=== PATIENT | male | born 1965 | race Caucasian/White ===

== ENCOUNTER 2024-05-07 20:23 | Emergency (ER) | payer SELFPAY ==
[~2024-05-07] VITALS: Ht 190.5 cm; Wt 99.8 kg
[2024-05-07 20:57] LABS: BASOPHILS ABSOLUTE AUTO 0.02 K/mm3 (0.00-0.23); BASOPHILS PERCENT AUTO 0 % (0-2); EOSINOPHILS ABSOLUTE AUTO 0.14 K/mm3 (0.00-0.68); EOSINOPHILS PERCENT AUTO 2 % (0-6); Hematocrit 42.4 % (37.0-53.0); Hemoglobin 13.3 g/dL (13.5-17.5); IMMATURE GRAN ABSOLUTE AUTO 0.02 K/mm3 (0.00-0.10); IMMATURE GRAN PERCENT AUTO 0 % (0-1); LYMPHOCYTES ABSOLUTE AUTO 1.11 K/mm3 (0.84-5.20); LYMPHOCYTES PERCENT AUTO 16 % (21-46); MONOCYTES ABSOLUTE AUTO 0.67 K/mm3 (0.16-1.47); MONOCYTES PERCENT AUTO 10 % (4-13); Mean Corpuscular HGB 24.9 pg (26.0-34.0); Mean Corpuscular HGB Conc 31.4 g/dL (31.5-36.5); Mean Corpuscular Volume 79 fL (80-100); Mean Platelet Volume 9.4 fL (9.1-12.4); NEUTROPHILS ABSOLUTE AUTO 4.97 K/mm3 (1.96-9.15); NEUTROPHILS PERCENT AUTO 72 % (41-73); Platelet Count 294 K/mm3 (150-400); RDW Coefficient Variation 16.3 % (11.7-14.2); RDW Standard Deviation 46.5 fL (35.1-46.3); Red Blood Cell Count 5.35 M/mm3 (4.30-5.90); White Blood Cell Count 6.93 K/mm3 (4.00-11.30)
[2024-05-07 21:15] LABS: Influenza A, PCR NEGATIVE (NEGATIVE); Influenza B, PCR NEGATIVE (NEGATIVE); Resp Syncytial Virus, PCR NEGATIVE (NEGATIVE); SARS-Cov-2 (COVID-19) PCR, MMC NEGATIVE (NEGATIVE)
[2024-05-07 21:21] LABS: Albumin, Blood 4.2 g/dL (3.4-5.0); Albumin/Globulin Ratio 1.4 (0.8-1.8); Bilirubin, Total 0.3 mg/dL (0.1-1.0); Bun/Creatinine Ratio 11.7 (12.0-20.0); Calcium, Blood 8.9 mg/dL (8.5-10.1); Creatinine, Blood 1.2 mg/dL (0.60-1.20); Globulin, Blood 2.9 g/dL (2.2-4.0); Potassium, Blood 4.2 mmol/L (3.5-5.5); Total Protein, Blood 7.1 g/dL (6.4-8.2)
== END 2024-05-07 22:13 | disposition left against medical advice (07) ==
LOC: ER 20:23
PROVIDERS: Student in an Organized Health Care Education/Training Program
DX: F41.9 Anxiety disorder, unspecified (principal); R07.9 Chest pain, unspecified; Z53.29 Procedure and treatment not carried out because of patient's decision for other reasons
CPT/HCPCS: 0241U; 71046; 80053; 84484; 85025

== ENCOUNTER 2024-06-11 23:07 | Inpatient (IN) | payer SELFPAY ==
[~2024-06-11] VITALS: Ht 190.5 cm; Wt 95.1 kg
[2024-06-11] MEDS ORDERED: Morphine Sulfate 4 MG/1 ML Injection IV ONE (23:25)
[2024-06-11 23:29] LABS: BASOPHILS ABSOLUTE AUTO 0.03 K/mm3 (0.00-0.23); BASOPHILS PERCENT AUTO 0 % (0-2); EOSINOPHILS ABSOLUTE AUTO 0.18 K/mm3 (0.00-0.68); EOSINOPHILS PERCENT AUTO 2 % (0-6); Hematocrit 39.1 % (37.0-53.0); Hemoglobin 12.3 g/dL (13.5-17.5); IMMATURE GRAN ABSOLUTE AUTO 0.03 K/mm3 (0.00-0.10); IMMATURE GRAN PERCENT AUTO 0 % (0-1); LYMPHOCYTES ABSOLUTE AUTO 1.88 K/mm3 (0.84-5.20); LYMPHOCYTES PERCENT AUTO 24 % (21-46); MONOCYTES PERCENT AUTO 10 % (4-13); Mean Corpuscular HGB 24.6 pg (26.0-34.0); Mean Corpuscular HGB Conc 31.5 g/dL (31.5-36.5); Mean Corpuscular Volume 78 fL (80-100); Mean Platelet Volume 9.3 fL (9.1-12.4); NEUTROPHILS ABSOLUTE AUTO 4.84 K/mm3 (1.96-9.15); NEUTROPHILS PERCENT AUTO 62 % (41-73); Platelet Count 274 K/mm3 (150-400); RDW Coefficient Variation 17.4 % (11.7-14.2); RDW Standard Deviation 49.1 fL (35.1-46.3); White Blood Cell Count 7.76 K/mm3 (4.00-11.30)
[2024-06-11] MEDS ORDERED: Ondansetron HCl 2 MG / ML 2ML Vial IV ONE (23:30)
[2024-06-11] MEDS ORDERED: ASPI81CH PO (23:38)
[2024-06-11] MEDS ORDERED: NITR.4SL SL (23:38)
[2024-06-11] MEDS ORDERED: CLOP75 PO (23:39)
[2024-06-11] MEDS ORDERED: GABA100 PO (23:39)
[2024-06-11 23:41] LABS: Albumin, Blood 3.5 g/dL (3.4-5.0); Albumin/Globulin Ratio 1.2 (0.8-1.8); Bilirubin, Total 0.3 mg/dL (0.1-1.0); Bun/Creatinine Ratio 18.7 (12.0-20.0); Calcium, Blood 8.6 mg/dL (8.5-10.1); Creatinine, Blood 1.07 mg/dL (0.60-1.20); Potassium, Blood 4.1 mmol/L (3.5-5.5); Total Protein, Blood 6.5 g/dL (6.4-8.2)
[2024-06-11 23:47] LABS: D-Dimer, Quantitative 1.21 mg/L FEU (0.00-0.52)
[2024-06-12] MEDS ORDERED: Nitroglycerin/D5W 250 ML IV PRN (00:30)
[2024-06-12] MEDS ORDERED: HYDROmorphone HCl/Pf 1MG SYR IV ONE (01:45)
[2024-06-12 03:10] LABS: Anti-Xa UFH, PHA Monitoring <0.10 IU/mL; International Normalized Ratio 1.05; Prothrombin Time Results 11.2 Sec (9.7-11.5)
[2024-06-12] MEDS ORDERED: Heparin Sodium,Porcine/0.5 NS 500 ML IV SCH (03:30)
[2024-06-12] MEDS ORDERED: Heparin Sodium 5000 Units/ML 1ML MDV IV ONE (03:30)
[2024-06-12] MEDS ORDERED: HYDROmorphone HCl/Pf 1MG SYR IV PRN (04:35)
[2024-06-12] MEDS ORDERED: Ondansetron HCl 2 MG / ML 2ML Vial IV PRN (06:35)
[2024-06-12] MEDS ORDERED: ONDA4 PO (06:38)
[2024-06-12] MEDS ORDERED: Aspirin 81 MG Chew PO SCH (09:00)
[2024-06-12] MEDS ORDERED: Clopidogrel Bisulfate 75 MG Tab PO SCH (09:00)
[2024-06-12] MEDS ORDERED: TraZODone HCl 50 MG Tab PO PRN (10:00)
[2024-06-12] MEDS ORDERED: Zolpidem Tartrate 10 MG Tab PO PRN (10:00)
[2024-06-12] MEDS ORDERED: HYDROcodone 10-APAP 325 TAB PO PRN (10:05)
[2024-06-12] MEDS ORDERED: Rivaroxaban 2.5 MG TABLET PO SCH (10:32)
[2024-06-12] MEDS ORDERED: Rivaroxaban 10 MG Tab PO SCH ×2 (10:35→21:00)
[2024-06-12] MEDS ORDERED: Insulin Regular 100 UNIT/ML 10ML Vial SC SCH (11:30)
[2024-06-12] MEDS ORDERED: Gabapentin 400 MG Cap PO SCH (14:00)
[2024-06-12] MEDS ORDERED: Doxycycline Hyclate 100 MG TAB PO SCH (15:00)
[2024-06-12] MEDS ORDERED: Clindamycin HCl 150 MG Cap PO SCH (15:00)
[2024-06-12] MEDS ORDERED: LORazepam 1 MG Tab PO PRN (15:45)
[2024-06-12] MEDS ORDERED: Isosorbide Mononitrate 30 MG TABCR PO SCH (18:00)
[2024-06-12] MEDS ORDERED: Doxycycline Mo100 M1 PO (18:37)
[2024-06-12] MEDS ORDERED: CLIN300 PO (18:38)
[2024-06-12 20:49] VITALS: BP 110/68
[2024-06-13 02:57] VITALS: BP 97/57
[2024-06-13 07:11] VITALS: BP 119/78
[2024-06-13] MEDS ORDERED: DULoxetine HCL 60 MG Capsule DR PO SCH (09:00)
[2024-06-13] MEDS ORDERED: DULO60 PO (10:44)
[2024-06-13] MEDS ORDERED: Norco 10-325 T1 EACH PO (10:45)
[2024-06-13] MEDS ORDERED: Ativan1 MG PO (10:46)
[2024-06-13] MEDS ORDERED: XARELTO20 MG PO (10:46)
[2024-06-13] MEDS ORDERED: ZOLP10 PO (10:48)
[2024-06-13] MEDS ORDERED: TRAZ150T57 PO (10:48)
[2024-06-13] MEDS ORDERED: XARELTO20 M1 PO (10:49)
[2024-06-13] MEDS ORDERED: GLUCOPHAGE1000 M1 PO (10:49)
--- NOTE | 2024-06-13 11:40 | NUR ---
DISCHARGE PATIENT TRANSPORTED VIA WHEELCHAIR TO PRIVATE VEHICLE. DISCHARGE INSTRUCTIONS EXPLAINED TO PATIENT. PATIENT STATED UNDERSTANDING. PACKET SENT WITH PATIENT. BELONGINGS SENT WITH PATIENT. IV REMOVED WITHOUT DIFFICULTY. FARMER CATH INTAKE AND DRAINING TO GRAVITY AT DISCHARGE. MEDICATIONS FAXED TO [facility] PER PATIENT REQUEST. PATIENT EDUCATED ON NEED TO [place] LOCAL PCP. PATIENT INSTRUCTED TO KEEP APPT THIS THURSDAY WITH PCP IN [place].
== END 2024-06-13 11:47 | disposition home or self-care (01) | DRG 176 ==
LOC: ER 23:07 → ERHOLD 23:08 → MEDS 06-12 16:04 → ERHOLD 06-12 16:04 → MEDS 06-12 20:46
PROVIDERS: Student in an Organized Health Care Education/Training Program; ADMIT Family Medicine
DX: I26.99 Other pulmonary embolism without acute cor pulmonale (principal); T87.40 Infection of amputation stump, unspecified extremity; I25.10 Atherosclerotic heart disease of native coronary artery without angina pectoris; Z66 Do not resuscitate; G62.9 Polyneuropathy, unspecified; G89.4 Chronic pain syndrome; F17.210 Nicotine dependence, cigarettes, uncomplicated; Y83.8 Other surgical procedures as the cause of abnormal reaction of the patient, or of later complication, without mention of misadventure at the time of the procedure; Z95.5 Presence of coronary angioplasty implant and graft; Z86.718 Personal history of other venous thrombosis and embolism; Z88.1 Allergy status to other antibiotic agents; I25.2 Old myocardial infarction; Z95.1 Presence of aortocoronary bypass graft; Z79.82 Long term (current) use of aspirin; Z79.899 Other long term (current) drug therapy
CPT/HCPCS: 71046; 71260; 80053; 82947; 83880; 84484; 85025; 85379; 85520; 85610; 93005; 93010; 96365-59; 96366; 96367-59; 96375; 96375-59; 96376-59; 99285-25; A9270; G0378; J1170; J1644; J2270; J2405; Q9967

== ENCOUNTER 2024-11-11 11:38 | Emergency (ER) | payer SELFPAY ==
[~2024-11-11] VITALS: Ht 190.5 cm; Wt 95.2 kg
[~2024-11-11 11:38] MED LIST: ASPI81CH PO; Ativan1 MG PO; CLIN300 PO; CLOP75 PO; DULO60 PO; Doxycycline Mo100 M1 PO; GABA100 PO; GLUCOPHAGE1000 M1 PO; NITR.4SL SL; Norco 10-325 T1 EACH PO; ONDA4 PO; TRAZ150T57 PO; XARELTO20 M1 PO; XARELTO20 MG PO; ZOLP10 PO
[2024-11-11 12:47] LABS: BASOPHILS ABSOLUTE AUTO 0.03 K/mm3 (0.00-0.23); BASOPHILS PERCENT AUTO 0 % (0-2); EOSINOPHILS ABSOLUTE AUTO 0.04 K/mm3 (0.00-0.68); EOSINOPHILS PERCENT AUTO 0 % (0-6); Hematocrit 44.3 % (37.0-53.0); Hemoglobin 14.7 g/dL (13.5-17.5); IMMATURE GRAN ABSOLUTE AUTO 0.04 K/mm3 (0.00-0.10); IMMATURE GRAN PERCENT AUTO 0 % (0-1); LYMPHOCYTES ABSOLUTE AUTO 1.21 K/mm3 (0.84-5.20); LYMPHOCYTES PERCENT AUTO 12 % (21-46); MONOCYTES ABSOLUTE AUTO 1.13 K/mm3 (0.16-1.47); MONOCYTES PERCENT AUTO 11 % (4-13); Mean Corpuscular HGB 27.9 pg (26.0-34.0); Mean Corpuscular HGB Conc 33.2 g/dL (31.5-36.5); Mean Corpuscular Volume 84 fL (80-100); Mean Platelet Volume 9.8 fL (9.1-12.4); NEUTROPHILS PERCENT AUTO 75 % (41-73); Platelet Count 174 K/mm3 (150-400); RDW Standard Deviation 45.9 fL (35.1-46.3); Red Blood Cell Count 5.27 M/mm3 (4.30-5.90); White Blood Cell Count 9.95 K/mm3 (4.00-11.30)
[2024-11-11 13:35] LABS: Albumin, Blood 3.6 g/dL (3.4-5.0); Bilirubin, Total 0.7 mg/dL (0.1-1.0); Bun/Creatinine Ratio 14.8 (12.0-20.0); Calcium, Blood 9.3 mg/dL (8.5-10.1); Creatinine, Blood 1.08 mg/dL (0.60-1.20); Globulin, Blood 3.7 g/dL (2.2-4.0); Potassium, Blood 3.9 mmol/L (3.5-5.5); Total Protein, Blood 7.3 g/dL (6.4-8.2)
[2024-11-11] MEDS ORDERED: OxyCODONE 10/Acetamin 325 TABLET PO ONE (16:25)
[2024-11-11 16:35] LABS: Source, Urine Suprapubic Cath
[2024-11-11 16:40] LABS: Appearance, Urine Hazy (Clear); Bilirubin, Urine Neg (Neg); Blood, Urine 3+ (Neg); Color, Urine Yellow (P-Yellow); Glucose Qualitative, Urine Neg (Neg); Ketones, Urine Neg (Neg); Leukocyte Esterase, Urine 3+ (Neg); Nitrite, Urine Neg (Neg); Protein, Urine 2+ (Neg); Urobilinogen, Urine 1+ (Normal); pH, Urine 6.5 (5.0-8.0)
[2024-11-11 17:00] LABS: White Blood Cells, Urine TNTC /hpf (0-5)
[2024-11-11 17:01] LABS: Bacteria Many /hpf; Squamous Epithelial Cells Not Seen /hpf (Few)
[2024-11-16] MEDS ORDERED: Veetids 500500 MG PO (08:57)
== END 2024-11-11 16:44 | disposition home or self-care (01) ==
LOC: ER 11:38
PROVIDERS: Student in an Organized Health Care Education/Training Program
DX: T83.010A Breakdown (mechanical) of cystostomy catheter, initial encounter (principal); L89.899 Pressure ulcer of other site, unspecified stage; E11.9 Type 2 diabetes mellitus without complications; G47.00 Insomnia, unspecified; Z79.899 Other long term (current) drug therapy; Z79.84 Long term (current) use of oral hypoglycemic drugs; Z88.1 Allergy status to other antibiotic agents; Z88.5 Allergy status to narcotic agent
CPT/HCPCS: 51705; 51798; 80053; 81001; 85025; 87077; 87086; 87186; 99283-25; A9270; C2627

== ENCOUNTER 2024-12-14 16:44 | Emergency (ER) | payer SELFPAY ==
[~2024-12-14] VITALS: Ht 190.5 cm; Wt 98.9 kg
[~2024-12-14 16:44] MED LIST changes: +Veetids 500500 MG PO
[2024-12-14 17:55] LABS: Source, Urine Suprapubic Cath
[2024-12-14 18:06] LABS: Albumin, Blood 3.3 g/dL (3.4-5.0); Albumin/Globulin Ratio 1.1 (0.8-1.8); Bilirubin, Total 0.7 mg/dL (0.1-1.0); Bun/Creatinine Ratio 14.6 (12.0-20.0); Calcium, Blood 8.7 mg/dL (8.5-10.1); Creatinine, Blood 1.3 mg/dL (0.60-1.20); Globulin, Blood 3.1 g/dL (2.2-4.0); Potassium, Blood 4.8 mmol/L (3.5-5.5); Total Protein, Blood 6.4 g/dL (6.4-8.2)
[2024-12-14 18:13] LABS: Appearance, Urine Cloudy (Clear); Bilirubin, Urine Neg (Neg); Blood, Urine 3+ (Neg); Color, Urine Yellow (P-Yellow); Glucose Qualitative, Urine Neg (Neg); Ketones, Urine Neg (Neg); Leukocyte Esterase, Urine 3+ (Neg); Nitrite, Urine Pos (Neg); Protein, Urine 2+ (Neg); Specific Gravity, Urine 1.015 (1.003-1.022); Urobilinogen, Urine NORM (Normal)
[2024-12-14 18:25] LABS: Bacteria Many /hpf; Squamous Epithelial Cells Rare /hpf (Few); White Blood Cells, Urine TNTC /hpf (0-5)
[2024-12-14 19:01] LABS: BASOPHILS ABSOLUTE AUTO 0.03 K/mm3 (0.00-0.23); BASOPHILS PERCENT AUTO 0 % (0-2); EOSINOPHILS ABSOLUTE AUTO 0.18 K/mm3 (0.00-0.68); EOSINOPHILS PERCENT AUTO 2 % (0-6); Hematocrit 44.3 % (37.0-53.0); Hemoglobin 14.2 g/dL (13.5-17.5); IMMATURE GRAN ABSOLUTE AUTO 0.06 K/mm3 (0.00-0.10); IMMATURE GRAN PERCENT AUTO 1 % (0-1); LYMPHOCYTES ABSOLUTE AUTO 0.87 K/mm3 (0.84-5.20); LYMPHOCYTES PERCENT AUTO 8 % (21-46); MONOCYTES ABSOLUTE AUTO 0.83 K/mm3 (0.16-1.47); MONOCYTES PERCENT AUTO 8 % (4-13); Mean Corpuscular HGB 27.5 pg (26.0-34.0); Mean Corpuscular HGB Conc 32.1 g/dL (31.5-36.5); Mean Corpuscular Volume 86 fL (80-100); Mean Platelet Volume 9.7 fL (9.1-12.4); NEUTROPHILS ABSOLUTE AUTO 8.95 K/mm3 (1.96-9.15); NEUTROPHILS PERCENT AUTO 82 % (41-73); Platelet Count 204 K/mm3 (150-400); RDW Coefficient Variation 15.3 % (11.7-14.2); RDW Standard Deviation 48.3 fL (35.1-46.3); Red Blood Cell Count 5.16 M/mm3 (4.30-5.90); White Blood Cell Count 10.92 K/mm3 (4.00-11.30)
[2024-12-14] MEDS ORDERED: HYDROcodone 10-APAP 325 TAB PO ONE (20:00)
[2024-12-14] MEDS ORDERED: SULTRIDS PO (20:22)
[2024-12-14] MEDS ORDERED: Trimethoprim/Sulfamethoxazole DS Tab PO SCH (21:00)
== END 2024-12-14 20:30 | disposition home or self-care (01) ==
LOC: ER 16:44
PROVIDERS: Student in an Organized Health Care Education/Training Program
DX: T83.010A Breakdown (mechanical) of cystostomy catheter, initial encounter (principal); N39.0 Urinary tract infection, site not specified; E11.9 Type 2 diabetes mellitus without complications; G47.00 Insomnia, unspecified; Z79.84 Long term (current) use of oral hypoglycemic drugs; Z79.899 Other long term (current) drug therapy; Z88.1 Allergy status to other antibiotic agents; Z88.5 Allergy status to narcotic agent
CPT/HCPCS: 36415; 51705; 80053; 81001; 85025; 87077; 87086; 87186; 99283-25; A9270; C2627

== ENCOUNTER 2025-02-16 15:22 | Emergency (ER) | payer MEDICARE, OTHER ==
[~2025-02-16] VITALS: Ht 172.7 cm; Wt 90.7 kg
[~2025-02-16 15:22] MED LIST changes: +SULTRIDS PO
[2025-02-16 15:55] LABS: BASOPHILS ABSOLUTE AUTO 0.03 K/mm3 (0.00-0.23); BASOPHILS PERCENT AUTO 0 % (0-2); EOSINOPHILS ABSOLUTE AUTO 0.14 K/mm3 (0.00-0.68); EOSINOPHILS PERCENT AUTO 2 % (0-6); Hematocrit 45.8 % (37.0-53.0); Hemoglobin 14.8 g/dL (13.5-17.5); IMMATURE GRAN ABSOLUTE AUTO 0.02 K/mm3 (0.00-0.10); IMMATURE GRAN PERCENT AUTO 0 % (0-1); LYMPHOCYTES ABSOLUTE AUTO 1.41 K/mm3 (0.84-5.20); LYMPHOCYTES PERCENT AUTO 16 % (21-46); MONOCYTES ABSOLUTE AUTO 0.68 K/mm3 (0.16-1.47); MONOCYTES PERCENT AUTO 8 % (4-13); Mean Corpuscular HGB 28.2 pg (26.0-34.0); Mean Corpuscular HGB Conc 32.3 g/dL (31.5-36.5); Mean Corpuscular Volume 87 fL (80-100); Mean Platelet Volume 9.7 fL (9.1-12.4); NEUTROPHILS ABSOLUTE AUTO 6.56 K/mm3 (1.96-9.15); NEUTROPHILS PERCENT AUTO 74 % (41-73); Platelet Count 197 K/mm3 (150-400); RDW Coefficient Variation 15.9 % (11.7-14.2); RDW Standard Deviation 51.1 fL (35.1-46.3); Red Blood Cell Count 5.24 M/mm3 (4.30-5.90); White Blood Cell Count 8.84 K/mm3 (4.00-11.30)
[2025-02-16 16:23] LABS: Albumin/Globulin Ratio 1.1 (0.8-1.8); Bilirubin, Total 0.4 mg/dL (0.1-1.0); Bun/Creatinine Ratio 18.3 (12.0-20.0); Calcium, Blood 9.3 mg/dL (8.5-10.1); Creatinine, Blood 1.04 mg/dL (0.60-1.20); Globulin, Blood 3.5 g/dL (2.2-4.0); Potassium, Blood 4.5 mmol/L (3.5-5.5); Total Protein, Blood 7.5 g/dL (6.4-8.2)
[2025-02-16 17:09] LABS: Source, Urine Foley catheter
[2025-02-16 17:12] LABS: Appearance, Urine Cloudy (Clear); Bilirubin, Urine Neg (Neg); Blood, Urine 5+ (Neg); Color, Urine Brown (P-Yellow); Glucose Qualitative, Urine Neg (Neg); Ketones, Urine Neg (Neg); Leukocyte Esterase, Urine 3+ (Neg); Nitrite, Urine Pos (Neg); Protein, Urine 4+ (Neg); Urobilinogen, Urine 1+ (Normal)
[2025-02-16 17:26] LABS: Bacteria Many /hpf; Red Blood Cells, Urine TNTC /hpf (0-2); Squamous Epithelial Cells Not Seen /hpf (Few); White Blood Cells, Urine 50-100 /hpf (0-5)
[2025-02-16] MEDS ORDERED: Bactrim Ds Tab1 EACH PO (18:30)
[2025-02-16] MEDS ORDERED: Trimethoprim/Sulfamethoxazole DS Tab PO ONE (18:30)
== END 2025-02-16 18:40 | disposition home or self-care (01) ==
LOC: ER 15:22
PROVIDERS: Emergency Medicine
DX: T83.090A Other mechanical complication of cystostomy catheter, initial encounter (principal); N39.0 Urinary tract infection, site not specified; R31.9 Hematuria, unspecified; E11.9 Type 2 diabetes mellitus without complications; I25.10 Atherosclerotic heart disease of native coronary artery without angina pectoris; I25.2 Old myocardial infarction; Z95.1 Presence of aortocoronary bypass graft; Z95.5 Presence of coronary angioplasty implant and graft; Z88.1 Allergy status to other antibiotic agents; Z88.5 Allergy status to narcotic agent; Z79.01 Long term (current) use of anticoagulants; Z79.84 Long term (current) use of oral hypoglycemic drugs; Z79.899 Other long term (current) drug therapy
CPT/HCPCS: 51705; 76857; 80053; 81001; 85025; 87077; 87086; 87186; 99284-25; A9270; C2627

== ENCOUNTER 2025-04-30 09:49 | Emergency (ER) | payer MEDICARE, OTHER ==
[~2025-04-30] VITALS: Ht 190.5 cm; Wt 112.0 kg
[~2025-04-30 09:49] MED LIST changes: +Bactrim Ds Tab1 EACH PO; +CYCL10 PO; +Crestor40 MG PO; +DABI150C; +ELIQUIS5 M2 PO; +ISODIN10 PO; +Isosorbide Mono30 MG PO; +Ultram50 MG PO; +ZOLPIDEM TARTRA10 MG PO
[2025-04-30 11:05] LABS: Source, Urine Suprapubic Cath
[2025-04-30 11:15] LABS: Bilirubin, Urine Neg (Neg); Color, Urine Yellow (P-Yellow); Glucose Qualitative, Urine Neg (Neg); Ketones, Urine Neg (Neg); Leukocyte Esterase, Urine 3+ (Neg); Protein, Urine 2+ (Neg); Specific Gravity, Urine 1.010 (1.003-1.022); Urobilinogen, Urine NORM (Normal)
[2025-04-30 11:21] LABS: White Blood Cells, Urine 25-50 /hpf (0-5)
[2025-04-30] MEDS ORDERED: Trimethoprim/Sulfamethoxazole DS Tab PO ONE (11:25)
[2025-04-30] MEDS ORDERED: SULTRIDS PO (11:27)
== END 2025-04-30 11:50 | disposition home or self-care (01) ==
LOC: ER 09:49
PROVIDERS: Student in an Organized Health Care Education/Training Program
DX: N39.0 Urinary tract infection, site not specified (principal); E11.9 Type 2 diabetes mellitus without complications; I25.10 Atherosclerotic heart disease of native coronary artery without angina pectoris; I10 Essential (primary) hypertension; E78.5 Hyperlipidemia, unspecified; Z93.50 Unspecified cystostomy status; I25.2 Old myocardial infarction; Z89.512 Acquired absence of left leg below knee; Z95.5 Presence of coronary angioplasty implant and graft; Z95.1 Presence of aortocoronary bypass graft; Z88.1 Allergy status to other antibiotic agents; Z88.5 Allergy status to narcotic agent; Z79.84 Long term (current) use of oral hypoglycemic drugs; Z79.01 Long term (current) use of anticoagulants; Z79.02 Long term (current) use of antithrombotics/antiplatelets; Z79.899 Other long term (current) drug therapy
CPT/HCPCS: 51798; 81001; 87077; 87086; 87186; 99283; A9270

== ENCOUNTER 2025-07-23 17:56 | Emergency (ER) | payer MEDICARE ==
[~2025-07-23] VITALS: Ht 190.5 cm; Wt 95.2 kg
== END 2025-07-23 21:54 | disposition home or self-care (01) ==
LOC: ER 17:56
DX: I86.1 Scrotal varices (principal); Z43.5 Encounter for attention to cystostomy; E11.9 Type 2 diabetes mellitus without complications; I25.2 Old myocardial infarction; Z88.1 Allergy status to other antibiotic agents; Z88.5 Allergy status to narcotic agent; Z79.899 Other long term (current) drug therapy; Z79.01 Long term (current) use of anticoagulants; Z95.5 Presence of coronary angioplasty implant and graft; Z95.1 Presence of aortocoronary bypass graft
CPT/HCPCS: 51705; 76870; 99284-25

== ENCOUNTER 2025-09-05 09:28 | Emergency (ER) | payer MEDICARE, OTHER ==
[~2025-09-05] VITALS: Ht 190.5 cm; Wt 95.2 kg
[2025-09-05] MEDS ORDERED: OCUFLOX511 LEFTEAR (12:20)
[2025-09-05] MEDS ORDERED: MUPIROCIN1 G1 TOP (12:27)
== END 2025-09-05 12:29 | disposition home or self-care (01) ==
LOC: ER 09:28
DX: H60.92 Unspecified otitis externa, left ear (principal); L89.891 Pressure ulcer of other site, stage 1; Z88.8 Allergy status to other drugs, medicaments and biological substances; Z79.899 Other long term (current) drug therapy; E11.9 Type 2 diabetes mellitus without complications
CPT/HCPCS: 69209; 99282-25